=== PATIENT | female | born 1965 | race African-American/Black ===

== ENCOUNTER 2016-07-22 14:23 | Inpatient (IN) | payer OTHER ==
[~2016-07-22] VITALS: Ht 167.6 cm; Wt 137.9 kg
[~2016-07-22 14:23] MED LIST: ADULT LOW DOSE81 M1; ALBUTEROL SULF8.5 GM IH; AMLODIPINE BESY10 MG PO; AMOXICILLIN500 MG PO; APRESOLINE10 MG PO; ASPIR-LOW81 MG PO; ATENOLOL; ATENOLOL25 MG PO; CARVEDILOL12.5 MG PO; CATAPRES0.1 MG PO; CLONIDINE HCL0.1 MG PO; COREG12.5 M1 PO; GLUCOPHAGE1000 MG PO; HYDRALAZINE HCL10 MG PO; HYDROCHLOROTH12.5 M3 PO; HYDROCHLOROTHIA25 MG PO; LIBRIUM25 MG PO; LISINOPRIL40 MG PO; LOVASTATIN20 MG PO; LOW DOSE ASPIRI81 M1 PO; METFORMIN HCL1000 M1; MICROZIDE12.5 M1 PO; NAPROSYN500 MG PO; NICOTINE PATCH1 EAC2 TD; NITROGLYCERIN0.4 MG SL; NORCO 5/3251 TABLET PO; PANTOPRAZOLE SO40 MG PO; PEN-VEE K,VEET500 MG PO; ULTRAM50 MG PO; VENTOLIN HFA18 GM IH; ZESTRIL40 MG PO
[2016-07-22 16:31] LABS: EOSINOPHIL (%) 0.6 % (0-5); IMMATURE GRANULOCYTE (%) 0.3 % (0.0-0.7); LYMPHOCYTE COUNT 1.6 K/uL (1.0-2.8); MCH 27.2 PG (29.0-34.0); MCHC 31.9 G/DL (30.0-36.0); MCV 85.2 FL (83-99); MEAN PLAT.VOLUME 10.2 uM^3 (9.5-12.4); MONOCYTE (%) 4.3 % (3-12); MONOCYTE COUNT 0.3 K/uL (0-0.8); NEUTROPHIL (%) 72.2 % (45-76); PLATELET COUNT 220 K/uL (156-360); RBC DIS.WIDTH-CV 14.9 % (11.8-14.6); RBC DIS.WIDTH-SD 46.2 % (39-53); RED BLOOD COUNT 4.93 M/uL (3.80-5.20); WHITE BLOOD COUNT 6.9 K/uL (4.1-10.2)
[2016-07-22 16:40] LABS: CHLORIDE 104 mEq/L (99-109); PROTHROMBIN TIME 10.5 (9.2-11.2); PTT 29.2 (25-32); SODIUM 139 mEq/L (136-147)
[2016-07-22 16:42] LABS: GLUCOSE 308 mg/dL (70-99)
[2016-07-22 16:43] LABS: ANION GAP 13 MEQ/L (2-14)
[2016-07-22 16:46] LABS: GFR ESTIMATE (CALCULATED) > 59 mL/min/
[2016-07-22 16:47] LABS: UREA NITROGEN (BUN) 11 mg/dL (9-23)
[2016-07-22 16:50] LABS: TROP-I INTERPRETATION NEGATIVE; TROPONIN-I 0.02 ng/mL (0.0-0.30)
[2016-07-22] MEDS ORDERED: ASPIR-LOW81 MG PO (17:31)
[2016-07-22] MEDS ORDERED: ATORVASTATIN CA40 MG PO (17:33)
[2016-07-22] MEDS ORDERED: ATENOLOL25 MG PO (17:33)
[2016-07-22] MEDS ORDERED: OXYBUTYNIN CHLOR5 MG PO (17:33)
[2016-07-22] MEDS ORDERED: HYDROCHLOROTHIA25 MG PO (17:38)
[2016-07-22 18:55] LABS: TOTAL BILIRUBIN 0.5 mg/dL (0.0-1.0)
[2016-07-22 18:56] LABS: ALKALINE PHOSPHATASE 130 IU/L (3-129)
[2016-07-22 18:59] LABS: DIRECT BILIRUBIN 0.2 mg/dL (0.0-0.3)
[2016-07-22 19:00] LABS: LIPASE 12 U/L (1.0-51.0)
[2016-07-22 19:31] LABS: D-DIMER ELISA 1.12 mg/L FEU (< 0.57)
[2016-07-22 21:53] VITALS: BP 209/100
[2016-07-23 00:04] LABS: TROP-I INTERPRETATION NEGATIVE; TROPONIN-I 0.02 ng/mL (0.0-0.30)
[2016-07-23 01:30] VITALS: BP 131/80
[2016-07-23 02:19] LABS: GLUCOSE 546 mg/dL (70-99)
[2016-07-23 03:06] LABS: CHLORIDE 102 mEq/L (99-109); POTASSIUM 4.3 mEq/L (3.7-5.4); SODIUM 135 mEq/L (136-147)
[2016-07-23 03:09] LABS: ANION GAP 12 MEQ/L (2-14)
[2016-07-23 03:11] LABS: GFR ESTIMATE (CALCULATED) > 59 mL/min/
[2016-07-23 03:12] LABS: UREA NITROGEN (BUN) 16 mg/dL (9-23)
[2016-07-23 03:43] VITALS: BP 142/90
[2016-07-23 05:11] LABS: SAMPLE HEMOLYSIS CHECK 0; SAMPLE ICTERIC CHECK 0; SAMPLE LIPEMIA CHECK 0
[2016-07-23 05:32] LABS: HEMATOCRIT 39.1 % (36.0-46.0); MCHC 31.2 G/DL (30.0-36.0); MCV 86.5 FL (83-99); MEAN PLAT.VOLUME 10.5 uM^3 (9.5-12.4); PLATELET COUNT 214 K/uL (156-360); RBC DIS.WIDTH-CV 15.1 % (11.8-14.6); RED BLOOD COUNT 4.52 M/uL (3.80-5.20); WHITE BLOOD COUNT 7.7 K/uL (4.1-10.2)
[2016-07-23 06:02] LABS: TROP-I INTERPRETATION NEGATIVE; TROPONIN-I 0.03 ng/mL (0.0-0.30)
[2016-07-23 06:18] LABS: POINT-OF-CARE METER ID UU14162513
[2016-07-23 08:41] VITALS: BP 133/81
[2016-07-23 10:14] LABS: Estimated Average Glucose 286 mg/dL (70-123); HEMOGLOBIN A1c (GLYCOHEMOGLOB) 11.6 % HGB (Below 5.7)
[2016-07-23] MEDS ORDERED: PANTOPRAZOLE SO40 MG PO (12:23)
[2016-07-23] MEDS ORDERED: GLUCOPHAGE1000 MG PO (12:23)
[2016-07-23] MEDS ORDERED: AMLODIPINE BESY10 MG PO (12:23)
[2016-07-23] MEDS ORDERED: ATENOLOL25 MG PO (12:23)
[2016-07-23] MEDS ORDERED: HYDROCHLOROTHIA25 MG PO (12:23)
[2016-07-23] MEDS ORDERED: LEVEMIR100 UNIT/2 SC (12:23)
[2016-07-23] MEDS ORDERED: OXYBUTYNIN CHLOR5 MG PO (12:23)
[2016-07-23] MEDS ORDERED: ASPIR-LOW81 MG PO (12:23)
[2016-07-23] MEDS ORDERED: HYDRALAZINE HCL10 MG PO (12:23)
[2016-07-23 12:27] LABS: POINT-OF-CARE METER ID UU13113700
[2016-07-23 12:31] LABS: POINT-OF-CARE METER ID UU13113831
[2016-07-23 12:36] VITALS: BP 145/72
[2016-07-23 13:01] LABS: POINT-OF-CARE METER ID UU13113831
[2016-07-23] MEDS ORDERED: HUMULIN N100 UNITS/ SC (13:26)
[2016-07-23 13:53] LABS: ANION GAP 16 MEQ/L (2-14); CHLORIDE 107 MEQ/L (99-109); POTASSIUM 4.3 MEQ/L (3.7-5.4); SAMPLE HEMOLYSIS CHECK 0; SAMPLE ICTERIC CHECK 0; SAMPLE LIPEMIA CHECK 0; SODIUM 138 MEQ/L (136-147)
[2016-07-23 13:58] LABS: GFR ESTIMATE (CALCULATED) > 59 mL/min/; GLUCOSE 303 mg/dL (70-99); UREA NITROGEN (BUN) 19 mg/dL (9-23)
[2016-07-23 15:22] VITALS: BP 162/97
[2016-07-23 15:29] LABS: ANION GAP 8 MEQ/L (2-14); CHLORIDE 101 MEQ/L (99-109); GFR ESTIMATE (CALCULATED) > 59 mL/min/; GLUCOSE 374 mg/dL (70-99); POTASSIUM 4.4 MEQ/L (3.7-5.4); SAMPLE HEMOLYSIS CHECK 0; SAMPLE ICTERIC CHECK 0; SAMPLE LIPEMIA CHECK 0; SODIUM 135 MEQ/L (136-147); UREA NITROGEN (BUN) 18 mg/dL (9-23)
[2016-07-23 16:57] LABS: POINT-OF-CARE METER ID UU13113831
[2016-07-23 19:26] LABS: POINT-OF-CARE METER ID UU14162513
[2016-07-23 19:30] VITALS: BP 188/96
[2016-07-23 21:38] LABS: POINT-OF-CARE METER ID UU13113831
[2016-07-24 00:03] VITALS: BP 155/91
[2016-07-24 04:08] VITALS: BP 176/99
[2016-07-24 09:00] VITALS: BP 168/92
== END 2016-07-24 17:01 | disposition home or self-care (01) | DRG 313 ==
LOC: EME → EDBD 14:23 → EME 14:23 → EDOF 18:03 → 5WEST 18:03
PROVIDERS: Emergency Medicine; Hospitalist
DX: R07.9 Chest pain, unspecified (principal); I10 Essential (primary) hypertension; Z91.14 Patient's other noncompliance with medication regimen; I16.9 Hypertensive crisis, unspecified; I25.10 Atherosclerotic heart disease of native coronary artery without angina pectoris; Z79.82 Long term (current) use of aspirin; E66.01 Morbid (severe) obesity due to excess calories; Z68.42 Body mass index [BMI] 45.0-49.9, adult; E11.8 Type 2 diabetes mellitus with unspecified complications; Z79.4 Long term (current) use of insulin; E78.5 Hyperlipidemia, unspecified; I25.2 Old myocardial infarction; F17.210 Nicotine dependence, cigarettes, uncomplicated; R32 Unspecified urinary incontinence; R60.0 Localized edema; R01.1 Cardiac murmur, unspecified; E87.2 Acidosis; G47.33 Obstructive sleep apnea (adult) (pediatric)
CPT/HCPCS: 71010; 71275; 80048; 80048 91; 80076; 82010; 82948; 83036; 83690; 84484; 84999; 85025; 85027; 85379; 85610; 85730; 93005; 93970; 99202; 99281; 99285; G0378; J1644; J1815; J7030

== ENCOUNTER 2017-04-17 12:24 | Emergency (ER) | payer OTHER ==
[~2017-04-17] VITALS: Ht 167.6 cm; Wt 137.9 kg
[~2017-04-17 12:24] MED LIST changes: +ATORVASTATIN CA40 MG PO; +HUMULIN N100 UNITS/ SC; +LEVEMIR100 UNIT/2 SC; +OXYBUTYNIN CHLOR5 MG PO
[2017-04-17] MEDS ORDERED: NORCO 5/3251 TABLET PO (13:07)
[2017-04-17] MEDS ORDERED: PEN-VEE K,VEET500 MG PO (13:07)
[2017-04-17] MEDS ORDERED: APRESOLINE10 MG PO (15:16)
[2017-04-17] MEDS ORDERED: TENORMIN25 MG PO (15:16)
[2017-04-17] MEDS ORDERED: NORVASC10 MG PO (15:16)
[2017-04-17] MEDS ORDERED: HYDROCHLOROTHIA25 MG PO (15:16)
[2017-04-17 16:00] VITALS: BP 181/103
== END 2017-04-17 16:07 | disposition home or self-care (01) ==
LOC: EME 12:24
DX: K02.9 Dental caries, unspecified (principal); I10 Essential (primary) hypertension; Z76.0 Encounter for issue of repeat prescription; Z88.8 Allergy status to other drugs, medicaments and biological substances
CPT/HCPCS: 82948

== ENCOUNTER 2017-06-01 07:18 | Day surgery (SDC) | payer OTHER ==
[~2017-06-01] VITALS: Ht 167.6 cm; Wt 136.5 kg
[~2017-06-01 07:18] MED LIST changes: -ATORVASTATIN CA40 MG PO; +DITROPAN5 MG PO; +HYDROCODON-ACE1 EAC7 PO; +LIPITOR80 MG PO; +LO-DOSE ASPIRIN81 M1 PO; +NORVASC10 MG PO; +PROTONIX40 MG PO; +TENORMIN25 MG PO; +TRAZODONE HCL50 MG PO
== END 2017-06-01 09:20 | disposition home or self-care (01) ==
LOC: PAIN 07:18 → SDC 08:15 → PAIN 08:15
PROVIDERS: Anesthesiology Pain Medicine
PROC: BR16ZZZ Fluoroscopy of Lumbar Facet Joint(s) (ICD-10-PCS; principal; 2017-06-01)
PROC: 3E0U3BZ Introduction of Anesthetic Agent into Joints, Percutaneous Approach (ICD-10-PCS; principal; 2017-06-01)
PROC: 3E0U33Z Introduction of Anti-inflammatory into Joints, Percutaneous Approach (ICD-10-PCS; principal; 2017-06-01)
DX: M12.88 Other specific arthropathies, not elsewhere classified, other specified site (principal); F32.9 Major depressive disorder, single episode, unspecified; E11.9 Type 2 diabetes mellitus without complications; E78.00 Pure hypercholesterolemia, unspecified; I10 Essential (primary) hypertension; F17.210 Nicotine dependence, cigarettes, uncomplicated; E66.01 Morbid (severe) obesity due to excess calories; Z68.42 Body mass index [BMI] 45.0-49.9, adult; Z79.84 Long term (current) use of oral hypoglycemic drugs
CPT/HCPCS: 82948; J1030; J2250; J3010; S0020

== ENCOUNTER 2017-07-27 12:34 | Day surgery (SDC) | payer OTHER ==
[~2017-07-27] VITALS: Ht 157.5 cm; Wt 141.1 kg
== END 2017-07-27 14:10 | disposition home or self-care (01) ==
LOC: PAIN 12:34 → SDC 13:00 → PAIN 13:00
PROVIDERS: Anesthesiology Pain Medicine
DX: M47.816 Spondylosis without myelopathy or radiculopathy, lumbar region (principal); G89.29 Other chronic pain; M54.16 Radiculopathy, lumbar region; F17.200 Nicotine dependence, unspecified, uncomplicated; I25.10 Atherosclerotic heart disease of native coronary artery without angina pectoris; E11.9 Type 2 diabetes mellitus without complications; E78.00 Pure hypercholesterolemia, unspecified; I10 Essential (primary) hypertension; E66.9 Obesity, unspecified; Z95.5 Presence of coronary angioplasty implant and graft
CPT/HCPCS: 80048; 82948; J1030; J2250; S0020

== ENCOUNTER 2017-08-22 18:59 | Inpatient (IN) | payer OTHER ==
[~2017-08-22] VITALS: Ht 165.1 cm; Wt 142.0 kg
[2017-08-22 19:47] LABS: HEMATOCRIT 35.3 % (36.0-46.0); HEMOGLOBIN 11.3 G/DL (11.9-15.5); MCH 27.5 PG (29.0-34.0); MCV 85.9 FL (83-99); PLATELET COUNT 163 K/uL (156-360); RBC DIS.WIDTH-CV 15.9 % (11.8-14.6); RBC DIS.WIDTH-SD 49.6 % (39-53); RED BLOOD COUNT 4.11 M/uL (3.80-5.20); WHITE BLOOD COUNT 6.8 K/uL (4.1-10.2)
[2017-08-22 19:55] LABS: ALBUMIN 3.2 g/dL (3.2-4.8)
[2017-08-22 19:56] LABS: CHLORIDE 106 mEq/L (99-109); POTASSIUM 3.3 mEq/L (3.7-5.4); SODIUM 141 mEq/L (136-147)
[2017-08-22 19:58] LABS: GLUCOSE 225 mg/dL (70-99); TOTAL PROTEIN 6.5 g/dL (6.4-8.3)
[2017-08-22 20:00] LABS: TOTAL BILIRUBIN 0.7 mg/dL (0.0-1.0)
[2017-08-22 20:01] LABS: ALKALINE PHOSPHATASE 118 IU/L (3-129)
[2017-08-22 20:02] LABS: CREATININE 0.9 mg/dL (0.6-1.3); GFR ESTIMATE (CALCULATED) > 59 mL/min/
[2017-08-22 20:03] LABS: AST (GOT) 8 IU/L (2-34); UREA NITROGEN (BUN) 14 mg/dL (9-23)
[2017-08-22 20:04] LABS: ALT (GPT) 8 IU/L (3-49)
[2017-08-22 20:26] LABS: TROP-I INTERPRETATION NEGATIVE; TROPONIN-I 0.02 ng/mL (0.0-0.30)
[2017-08-22 22:02] LABS: INTER. NORMALIZED RATIO 1.2
[2017-08-22] MEDS ORDERED: CLONAZEPAM0.5 MG PO (22:28)
[2017-08-23] VITALS (8 sets, daily range): BP systolic 141–187; BP diastolic 75–98
[2017-08-23 02:40] LABS: TROP-I INTERPRETATION NEGATIVE; TROPONIN-I 0.02 ng/mL (0.0-0.30)
[2017-08-23 04:15] LABS: HEMATOCRIT 34.9 % (36.0-46.0); HEMOGLOBIN 11.2 G/DL (11.9-15.5); MCH 27.5 PG (29.0-34.0); MCHC 32.1 G/DL (30.0-36.0); MCV 85.7 FL (83-99); PLATELET COUNT 161 K/uL (156-360); RBC DIS.WIDTH-CV 15.8 % (11.8-14.6); RBC DIS.WIDTH-SD 49.4 % (39-53); RED BLOOD COUNT 4.07 M/uL (3.80-5.20); WHITE BLOOD COUNT 7.5 K/uL (4.1-10.2)
[2017-08-23 04:25] LABS: INTER. NORMALIZED RATIO 1.2
[2017-08-23 04:27] LABS: PTT 36.8 SEC (25-37)
[2017-08-24 03:09] VITALS: BP 174/84
[2017-08-24 05:33] LABS: BASOPHIL (%) 0.2 % (0-1); EOSINOPHIL (%) 0.9 % (0-5); EOSINOPHIL COUNT 0.1 K/uL (0-0.3); HEMATOCRIT 31.5 % (36.0-46.0); HEMOGLOBIN 9.5 G/DL (11.9-15.5); IMMATURE GRANULOCYTE (%) 0.3 % (0.0-0.7); LYMPHOCYTE (%) 26.9 % (15-42); LYMPHOCYTE COUNT 2.4 K/uL (1.0-2.8); MCH 26.4 PG (29.0-34.0); MCHC 30.2 G/DL (30.0-36.0); MCV 87.5 FL (83-99); MONOCYTE (%) 3.7 % (3-12); MONOCYTE COUNT 0.3 K/uL (0-0.8); NEUTROPHIL COUNT 5.9 K/uL (1.8-6.4); PLATELET COUNT 174 K/uL (156-360); RBC DIS.WIDTH-CV 15.7 % (11.8-14.6); RBC DIS.WIDTH-SD 50.4 % (39-53); WHITE BLOOD COUNT 8.7 K/uL (4.1-10.2)
[2017-08-24 05:57] LABS: CHLORIDE 108 MEQ/L (99-109); CREATININE 0.8 MG/DL (0.6-1.3); GFR ESTIMATE (CALCULATED) > 59 mL/min/; GLUCOSE 177 mg/dL (70-99); POTASSIUM 4.6 MEQ/L (3.7-5.4); SODIUM 139 MEQ/L (136-147); UREA NITROGEN (BUN) 21 mg/dL (9-23)
[2017-08-24 07:42] VITALS: BP 143/84
[2017-08-24 11:32] VITALS: BP 141/87
[2017-08-24] MEDS ORDERED: ELIQUIS5 MG PO (13:38)
[2017-08-24 14:00] VITALS: BP 139/80
[2017-08-24 19:43] VITALS: BP 142/84
[2017-08-25 00:09] VITALS: BP 168/85
[2017-08-25 03:55] VITALS: BP 143/82
[2017-08-25 05:58] LABS: HEMATOCRIT 32.2 % (36.0-46.0); HEMOGLOBIN 9.9 G/DL (11.9-15.5); MCH 26.8 PG (29.0-34.0); MCHC 30.7 G/DL (30.0-36.0); MCV 87.3 FL (83-99); PLATELET COUNT 195 K/uL (156-360); RBC DIS.WIDTH-CV 15.3 % (11.8-14.6); RBC DIS.WIDTH-SD 48.8 % (39-53); RED BLOOD COUNT 3.69 M/uL (3.80-5.20); WHITE BLOOD COUNT 8.6 K/uL (4.1-10.2)
[2017-08-25 06:24] LABS: CREATININE 0.9 MG/DL (0.6-1.3); GFR ESTIMATE (CALCULATED) > 59 mL/min/; UREA NITROGEN (BUN) 19 mg/dL (9-23)
[2017-08-25 07:12] VITALS: BP 162/78
[2017-08-25 08:06] LABS: IRON 24 MCG/DL (35-150); TRANSFERRIN (TIBC) 237.9 mg/dL (215-380); TRANSFERRIN SATUR. 10 % (20-55)
[2017-08-25 08:24] LABS: FERRITIN 121 NG/ML (10-291)
[2017-08-25 10:57] LABS: HEMOGLOBIN A1c (GLYCOHEMOGLOB) 8.5 % (Below 5.7)
[2017-08-25] MEDS ORDERED: HUMULIN N100 UNITS/ SC (11:47)
[2017-08-25] MEDS ORDERED: PROAIR RESPICL90 MCG IH (11:48)
[2017-08-25] MEDS ORDERED: PREDNISONE20 MG PO (14:57)
== END 2017-08-25 16:00 | disposition home or self-care (01) | DRG 176 ==
LOC: EME 18:59 → 5SOUTH 23:26 → 4EAST 23:26 → EDOF 23:26 → ENRESERV 23:27 → 4EAST 08-23 01:44 → ENRESERV 08-24 11:35 → 5SOUTH 08-24 13:45
PROVIDERS: Emergency Medicine; Hospitalist; Internal Medicine; Nurse Practitioner Family; Physician Assistant
DX: I26.99 Other pulmonary embolism without acute cor pulmonale (principal); J44.1 Chronic obstructive pulmonary disease with (acute) exacerbation; I11.0 Hypertensive heart disease with heart failure; E87.6 Hypokalemia; I50.9 Heart failure, unspecified; I25.10 Atherosclerotic heart disease of native coronary artery without angina pectoris; D64.9 Anemia, unspecified; Z79.01 Long term (current) use of anticoagulants; R09.02 Hypoxemia; I35.0 Nonrheumatic aortic (valve) stenosis; E78.5 Hyperlipidemia, unspecified; F17.200 Nicotine dependence, unspecified, uncomplicated; E11.9 Type 2 diabetes mellitus without complications; Z95.5 Presence of coronary angioplasty implant and graft; Z86.73 Personal history of transient ischemic attack (TIA), and cerebral infarction without residual deficits; Z79.899 Other long term (current) drug therapy; Z79.84 Long term (current) use of oral hypoglycemic drugs; Z79.82 Long term (current) use of aspirin
CPT/HCPCS: 71046; 71275; 80048; 80053; 82272; 82565; 82728; 82948; 83036; 83540; 84466; 84484; 84520; 85025; 85027; 85379; 85610; 85730; 93005; 93306; 93971; 94640; 94640 76; 94799; 99202; 99281; 99285; J0456; J1815; J2405; J7512